=== PATIENT | female | born 1980 | race Caucasian/White ===

== ENCOUNTER 2021-12-04 21:05 | Emergency (ER) | payer OTHER ==
[2021-12-04 21:54] VITALS: BP 128/76; PULSE 84; TEMP 97.9; BMI 18.4
== END 2021-12-05 00:42 | disposition home or self-care (01) ==
LOC: JER 21:05
DX: U07.1 COVID-19 (principal); R05.1 Acute cough
CPT/HCPCS: 71046-TC-FY; 99283-25